=== PATIENT | female | born 1960 | race Caucasian/White ===

== ENCOUNTER 2019-07-27 19:15 | Emergency (ER) | payer OTHER ==
[~2019-07-27] VITALS: Ht 177.8 cm; Wt 63.5 kg
[2019-07-27 19:23] VITALS: BP 149/100
[2019-07-27] MEDS ORDERED: TDAP [DIPH/PERTUSSIS/TET] 0.5 ML VIAL IM ONE ×2 (19:48→20:00)
[2019-07-27] MEDS ORDERED: LIDOCAINE 1%-EPI 1:100,000 20 ML VIAL ONE (20:11)
[2019-07-27] MEDS ORDERED: LIDOCAINE 1% INJ 50 ML MDV IJ ONE (20:30)
--- NOTE | 2019-07-27 20:35 | NUR ---
WOUND CARE ON BILATERAL FOREARM DOG BITES PROVIDED. STICHES REMAINED INTACT AND CLEAN.
--- NOTE | 2019-07-27 20:43 | NUR ---
Patient discharged to home in stable condition. Rx abnd Written and verbal after care instructions given. Patient verbalizes understanding of instruction.
== END 2019-07-27 20:45 | disposition home or self-care (01) ==
LOC: ER 19:20
DX: S51.811A Laceration without foreign body of right forearm, initial encounter (principal); S51.812A Laceration without foreign body of left forearm, initial encounter; F17.200 Nicotine dependence, unspecified, uncomplicated; Z88.5 Allergy status to narcotic agent; W54.0XXA Bitten by dog, initial encounter; Y93.89 Activity, other specified; Y92.89 Other specified places as the place of occurrence of the external cause; Y99.8 Other external cause status
CPT/HCPCS: 12001; 90471; 90715; 99283; A6403; J3490

== ENCOUNTER 2019-08-08 16:11 | Emergency (ER) | payer OTHER ==
[~2019-08-08] VITALS: Ht 177.8 cm; Wt 65.8 kg
[2019-08-08 16:18] VITALS: BP 126/78
--- NOTE | 2019-08-08 16:44 | NUR ---
Patient discharged to home in stable condition. Written and verbal after care instructions given. Patient verbalizes understanding of instruction.
== END 2019-08-08 16:45 | disposition home or self-care (01) ==
LOC: ER 16:12
DX: S51.811D Laceration without foreign body of right forearm, subsequent encounter (principal); F17.200 Nicotine dependence, unspecified, uncomplicated; Z88.5 Allergy status to narcotic agent; W54.0XXD Bitten by dog, subsequent encounter

== ENCOUNTER 2023-12-25 07:54 | Emergency (ER) | payer MEDICAID, OTHER ==
[~2023-12-25] VITALS: Ht 177.8 cm; Wt 66.2 kg
[2023-12-25 07:54] VITALS: TEMP 98.4
[2023-12-25] MEDS: KETOROLAC TROMETHAMINE 15 MG/ML VIAL IM ONE (08:07)
[2023-12-25] MEDS ORDERED: KETOROLAC TROMETHAMINE 15 MG/ML VIAL ONE (08:09)
[2023-12-25 10:25] VITALS: BP 138/88; O2SAT 97
[2023-12-25] MEDS ORDERED: NAPR-1164 PO (10:37)
== END 2023-12-25 11:18 | disposition home or self-care (01) ==
LOC: ER 07:56
DX: S39.012A Strain of muscle, fascia and tendon of lower back, initial encounter (principal); G89.29 Other chronic pain; F17.200 Nicotine dependence, unspecified, uncomplicated; Z85.3 Personal history of malignant neoplasm of breast; Z88.0 Allergy status to penicillin; Z88.5 Allergy status to narcotic agent; Z88.8 Allergy status to other drugs, medicaments and biological substances; X58.XXXA Exposure to other specified factors, initial encounter; Y93.89 Activity, other specified; Y92.89 Other specified places as the place of occurrence of the external cause; Y99.8 Other external cause status
CPT/HCPCS: 99283; 96372; 72100; J1885

== ENCOUNTER 2024-06-03 11:50 | Emergency (ER) | payer OTHER ==
[~2024-06-03] VITALS: Ht 177.8 cm; Wt 58.1 kg
[~2024-06-03 11:50] MED LIST: NAPR-1164 PO
[2024-06-03 12:10] VITALS: BP 115/84; TEMP 98.3
[2024-06-03] MEDS ORDERED: ERYT3.5O9 LEFTEYE (12:22)
[2024-06-03] MEDS ORDERED: CLIN300C12 PO (12:22)
[2024-06-03 12:48] VITALS: O2SAT 98
== END 2024-06-03 12:49 | disposition home or self-care (01) ==
LOC: ER 11:59
DX: H00.014 Hordeolum externum left upper eyelid (principal); I10 Essential (primary) hypertension; F17.200 Nicotine dependence, unspecified, uncomplicated; Z88.0 Allergy status to penicillin; Z88.5 Allergy status to narcotic agent